=== PATIENT | female | born 1945 | race Caucasian/White ===

== ENCOUNTER 2022-03-27 08:01 | Emergency (ER) | payer MEDICARE, SELFPAY ==
--- NOTE | 2022-03-27 08:02 | ED.LOWEXIN ---
HPI - Extremity Injury (Lower) General Chief Complaint: Extremity Problem,Nontraumatic Stated Complaint: right leg pain Source: patient, RN notes reviewed and old records reviewed Mode of arrival: ambulatory Limitations: no limitations History of Present Illness HPI Narrative: 76-year-old female presents to the ED express care with complaints of right leg pain for 4-5 days. HX hypertension states she took her medication just prior to arrival. Has been traveling via car. [place] to [facility] to [place] back to the local area. Currently not on blood thinners. Denies any trauma. Denies HX of DVT or blood clots Onset (ago): day(s) (4-5) Related Data Allergies Allergy/AdvReac Type Severity Reaction Status Date / Time Latex, Natural Rubber Allergy Rash Verified 03/27/22 08:57 morphine Allergy Unknown Verified 03/27/22 08:57 Review of Systems Review of Systems: All systems reviewed & are unremarkable except as noted in HPI and below Constitutional: Constitutional: Reports no additional constitutional complaints, Denies chills and Denies fever(s) Eyes: Eyes: Reports no additional eye complaints ENT: Reports system reviewed and no additional complaints, except as documented Cardiovascular: Cardiovascular: Reports no additional cardiovascular complaints, Denies chest pain and Denies rapid heart rate Respiratory: Respiratory: Reports no additional respiratory complaints, Denies chest congestion, Denies cough and Denies dyspnea Gastrointestinal: Gastrointestinal: Reports no additional gastrointestinal complaints Musculoskeletal: Musculoskeletal: Reports as per HPI (right lower leg swelling) Integumentary/Breasts: Skin/Breast: Reports system reviewed and no additional complaints, except as docu Neurologic: Reports system reviewed and no additional complaints, except as documented Psychiatric: Psychiatric: Reports no additional psychiatric complaints Allergic/Immunologic: Allergic/Immunologic: Reports no additional allergic/immunologic complaints [facility] Past Medical History Medical History (Updated 03/27/22 @ 08:31 by Rosario Reina APRN) Anxiety and depression Arthritis H/O gastroesophageal reflux (GERD) Hypertension Social History Social History (Updated 03/27/22 @ 08:24 by Rosario Reina APRN) Gender identity (if verbalized by the patient): Female Comments At the time of my signature, I reviewed and agree with the nursing past medical, surgical, social, and family history. There is no relevant family history pertinent to the patient complaint. Exam Const: General: healthy appearing, no acute distress and alert Nutritional Appearance: well nourished Orientation/consciousness: patient oriented x3 Limitations: no limitations HENMT: Head: normal to inspection Ears: external ears normal Eyes: Pupils: Equal, round and reactive pupils present Neck: Neck: normal visual inspection, no lymphadenopathy and no meningeal signs Chest: Chest palpation & inspection: normal inspection of the chest Resp: Effort & Inspection: normal respiratory effort Auscultation: clear to auscultation bilaterally Cardio: Rate: regular rate Rhythm: regular rhythm Skin: General skin exam: normal color Rashes: no rashes Wounds: no wounds Other: increased redness to the right lower leg Neuro: General: patient oriented x3, moves all extremities, no meningeal signs and no focal motor deficits Cranial nerves: Yes Equal, round and reactive pupils present Speech: normal speech Gait exam (Neuro): Normal gait present Extrem: Right lower extremity: full ROM, normal capillary refill, edema Details: non-pitting and 1+ and lower leg Details: erythema, tenderness and non-pitting edema; no ecchymosis and no crepitus Upper/lower leg/hip images: 1. 39 cm 2. 36 cm Psych: Appearance: grossly normal and well kempt Mental Status: mental status grossly normal Thought content: Yes Normal thought content present Course Course Marita
[2022-03-27 08:14] VITALS: BP 185/63; PULSE 72; RESP 16; TEMP 37.3; O2SAT 98
== END 2022-03-27 08:20 | disposition short-term general hospital (02) ==
PROVIDERS: Emergency Provider Nurse Practitioner
DX: M79.661 Pain in right lower leg (principal); M79.89 Other specified soft tissue disorders; M19.90 Unspecified osteoarthritis, unspecified site; K21.9 Gastro-esophageal reflux disease without esophagitis; I10 Essential (primary) hypertension
CPT/HCPCS: 99202; G0463

== ENCOUNTER 2022-03-27 08:37 | Emergency (ER) | payer MEDICARE, SELFPAY ==
--- NOTE | ~2022-03-27 | US_ITS ---
EXAMINATION:US venous doppler LE RT INDICATION:Right leg pain and swelling TECHNIQUE: Multiple grayscale, color flow and Doppler images of the right lower extremity deep venous systems were obtained and reviewed. COMPARISON:No prior studies for comparison. FINDINGS: The common femoral, superficial femoral and popliteal veins demonstrate normal respiratory variation, augmentation and compressibility. Color flow is also seen within the posterior tibial, pe roneal, greater saphenous and profunda veins. IMPRESSION: 1: No lower extremity deep venous thrombosis. Reviewed, dictated and finalized at location A.
[2022-03-27 08:42] VITALS: BP 163/68; PULSE 73; RESP 18; TEMP 36.6; O2SAT 95
--- NOTE | 2022-03-27 09:15 | PC.NURSE ---
Pt taken for ultrasound
--- NOTE | 2022-03-27 09:51 | ED.EXTPRO ---
HPI - Extremity Problem General Chief complaint: Extremity Problem,Nontraumatic Stated complaint: DVT? Time Seen by Provider: 03/27/22 08:46 History of Present Illness HPI Narrative: 76-year-old female presenting here from urgent care for right lower extremity swelling, she states it started after she been doing quite a lot of traveling, endorsing some pain, states she has never had blood clots in the past. Related Data Home Medications Medication Instructions Recorded Confirmed carvedilol 25 mg tablet 1 tablet PO BID 03/27/22 03/27/22 duloxetine 30 mg capsule,delayed 1 cap PO DAILY 03/27/22 03/27/22 release ergocalciferol (vitamin D2) 1,250 1 cap WEEKLY 03/27/22 03/27/22 mcg (50,000 unit) capsule hydroxychloroquine 200 mg tablet 1 tablet PO BID 03/27/22 03/27/22 losartan 100 mg tablet 1 tablet PO DAILY 03/27/22 03/27/22 lovastatin 20 mg tablet 1 tablet PO DAILY 03/27/22 03/27/22 montelukast 10 mg tablet 1 tablet PO DAILY 03/27/22 03/27/22 nifedipine 30 mg tablet,extended 1 tablet PO DAILY 03/27/22 03/27/22 release pantoprazole 40 mg tablet,delayed 1 tablet PO DAILY 03/27/22 03/27/22 release pilocarpine HCl 7.5 mg tablet 1 tablet PO BID 03/27/22 03/27/22 Allergies Allergy/AdvReac Type Severity Reaction Status Date / Time Latex, Natural Rubber Allergy Rash Verified 03/27/22 08:57 morphine Allergy Unknown Verified 03/27/22 08:57 Review of Systems Review of Systems: CONST: No fever. HEENT: No sore throat C/V: No chest pain RESP: No cough GI: No abdominal pain : No dysuria. M/S: Right lower extremity swelling SKIN: Slightly red rash right Calf NEURO: [No headache or focal numbness or weakness] PSYCH: [No depression] [facility] Past Medical History Medical History Anxiety and depression Arthritis H/O gastroesophageal reflux (GERD) Hypertension Social History Social History Gender identity (if verbalized by the patient): Female Exam Narrative: EXAMINATION OF ORGAN SYSTEMS/BODY AREAS: Constitutional: Vital signs per nursing GENERAL:[No acute distress, non-toxic appearing.] HEAD: Normal with no signs of head trauma. EYES: EOMI, conjunctiva normal ENT: Hearing grossly intact LUNGS: Nonlabored breathing. HEART: [Regular rate and rhythm] ABD: [Soft], non[tender to palpation] EXT: Normal range of motion, slight erythematous area to the right calf that is tender to touch, right leg is swollen compared to the left SKIN: slight erythematous area to the right calf that is tender to touch NEURO: [Alert and oriented x 3. No gross focal sensory or strength deficits.] PSYCH: Normal affect Course Vital Signs Vital signs: Vital Signs Temperature 97.8 F 03/27/22 08:42 Pulse Rate 73 03/27/22 08:42 Respiratory Rate 18 03/27/22 08:42 Blood Pressure 163/68 H 03/27/22 08:42 Pulse Oximetry 95 03/27/22 08:42 Oxygen Delivery Room Air 03/27/22 08:42 Temperature 97.8 F 03/27/22 08:42 Pulse Rate 72 03/27/22 10:24 Respiratory Rate 18 03/27/22 10:24 Blood Pressure 160/62 H 03/27/22 10:24 Pulse Oximetry 95 03/27/22 10:24 Oxygen Delivery Room Air 03/27/22 08:42 MDM - Extremity (Nontraumatic) MDM Narrative Medical decision making narrative: 76-year-old female presenting with concern for DVT, ultrasound performed here is negative, given that exam I will treat her tentatively for possible cellulitis and she is urged to follow-up with her primary care doctor and can likely get a repeat ultrasound in about a week if symptoms not improved. Return precautions provided. Differential Diagnosis Differential diagnosis: Likely cellulitis, lower extremity edema and deep vein thrombosis of lower extremity Discharge Plan Discharge Clinical Impression: Pain and swelling of right lower extremity Patient Disposition: Home, Self-Care Condition: Stable Instructions: Antibiot
[2022-03-27 10:24] VITALS: BP 160/62; PULSE 72; RESP 18; O2SAT 95
== END 2022-03-27 10:10 | disposition home or self-care (01) ==
PROVIDERS: Emergency Provider Emergency Medicine
DX: R22.41 Localized swelling, mass and lump, right lower limb (principal); M79.604 Pain in right leg; I10 Essential (primary) hypertension; F41.9 Anxiety disorder, unspecified; F32.9 Major depressive disorder, single episode, unspecified
CPT/HCPCS: 93971; 99284